=== PATIENT | female | born 1955 | race Caucasian/White ===

== ENCOUNTER → 2017-06-07 | Outpatient (CLI) | payer OTHER | LOC: BMCIMAGING 15:40 | PROVIDERS: ATTEND Podiatrist Foot & Ankle Surgery | DX: M19.071 Primary osteoarthritis, right ankle and foot (principal) ==

== ENCOUNTER 2017-12-26 15:38 | Inpatient (IN) | payer OTHER ==
[2017-12-26 16:33] LABS: PLATELET COUNT 397 10^3/uL (150-400)
[2017-12-26 16:41] LABS: INR 1.08 (0.83-1.16); PROTIME(PATIENT) 14.2 SEC (12.0-15.0)
[2017-12-26] MEDS ORDERED: ACETAMINOPHEN 325 MG TAB PO PRN (17:15)
[2017-12-26] MEDS ORDERED: oxyCODONE IR 5 MG TAB PO PRN (17:15)
[2017-12-26] MEDS ORDERED: ONDANSETRON DISINTEGRATING 4 MG TAB PO PRN (17:15)
[2017-12-26] MEDS ORDERED: ONDANSETRON 4 MG/2 ML VIAL IVP PRN (17:15)
--- NOTE | 2017-12-26 18:22 | PDGENHP ---
History and Physical - Chief Complaint anemia, weakness - History of Present Illness This is a 62 yo female who is post menopausal who previously had a long hx of heavy periods who has had intermittent vaginal bleeding since the middle of November. She is followed by her [employer], Dr. Gal Sun. She has been diagnosed with uterine fibroids. She recently had an endometrial biopsy and this was non diagnostic. A Hysterectomy was recommended. She wanted a seconded opinion and therefore presented to Dr. Crawford today for discussion regarding uterine artery embolization. During her consultation, she was found to have fatigue and be pale and labs were obtained which shows a Hgb of 6.2. We have been asked to provide direct admission for symptomatic anemia and further w/u and management. She reports weight loss over the past 2 months. She has no other constitutional symptoms. She denies cp, palpitations, leg swelling, fever, n/v/d. She has no hx of CV disease. She does not take an aspirin or platelet inhibitor. She is not on AC PMHx: uterine fibroids PSHx: x 2 Soc: daily ETOH at dinner, no Tobacco. Lives with FmHx: no hx of uterine cancer History Information - Allergies/Home Medication List Allergies/Adverse Reactions: No Known Allergies Allergy (Unverified 07/04/16 10:02) Home Medications: Aspirin [Aspirin 81mg (*)] 81 mg PO DAILY 07/04/16 [Last Taken Unknown] Herbals/Supplements -Info Only 1 ea PO DAILY 07/04/16 [Last Taken Unknown] Multivitamins [Multivitamin (*)] 1 each PO DAILY 07/04/16 [Last Taken Unknown] Naproxen Sodium [Aleve 220 MG (*)] 220 mg PO DAILY PRN 07/04/16 [Last Taken Unknown] I have personally reviewed and updated: medical history, social history - Social History Smoking Status: Never smoked Review of Systems Review of Systems: ROS: 10pt was reviewed & negative except for what was stated in HPI & below Physical Exam Physical Exam: Temp Pulse Resp BP Pulse Ox 37.1 C 112 H 18 153/88 H 86 L 12/26/17 18:03 12/26/17 18:03 12/26/17 18:03 12/26/17 18:03 12/26/17 18:03 Constitutional: no apparent distress Eyes: PERRL, pale conjunctiva Ears, Nose, Mouth, Throat: moist mucous membranes, hearing normal Cardiovascular: tachycardia, No irregularly irregular, No JVD, No edema Respiratory: no respiratory distress, no rales or rhonchi, clear to auscultation Gastrointestinal: normoactive bowel sounds, soft, non-tender abdomen Genitourinary: no bladder fullness Skin: warm Musculoskeletal: full muscle strength Neurologic: AAOx3 Psychiatric: interacting appropriately, not anxious, not encephalopathic Lymph, Heme, Immunologic: No petechiae Lab Data & Imaging Review 12/26/17 16:25 12/26/17 16:25 WBC 7.73 10^3/uL (3.80-9.50) 12/26/17 16:25 RBC 2.04 10^6/uL (4.18-5.33) L 12/26/17 16:25 Hgb 6.2 g/dL (12.6-16.3) L 12/26/17 16:25 Hct 20.4 % (38.0-47.0) L 12/26/17 16:25 MCV 100.0 fL (81.5-99.8) H 12/26/17 16:25 MCH 30.4 pg (27.9-34.1) 12/26/17 16:25 MCHC 30.4 g/dL (32.4-36.7) L 12/26/17 16:25 RDW 12.7 % (11.5-15.2) 12/26/17 16:25 Plt Count 397 10^3/uL (150-400) 12/26/17 16:25 MPV 9.3 fL (8.7-11.7) 12/26/17 16:25 Neut % (Auto) 78.3 % (39.3-74.2) H 12/26/17 16:25 Lymph % (Auto) 11.0 % (15.0-45.0) L 12/26/17 16:25 [place] % (Auto) 9.1 % (4.5-13.0) 12/26/17 16:25 Eos % (Auto) 0.5 % (0.6-7.6) L 12/26/17 16:25 Baso % (Auto) 0.8 % (0.3-1.7) 12/26/17 16:25 Nucleat RBC Rel Count 0.0 % (0.0-0.2) 12/26/17 16:25 Absolute Neuts (auto) 6.06 10^3/uL (1.70-6.50) 12/26/17 16:25 Absolute Lymphs (auto) 0.85 10^3/uL (1.00-3.00) L 12/26/17 16:25 Absolute Monos (auto) 0.70 10^3/uL (0.30-0.80) 12/26/17 16:25 Absolute Eos (auto) 0.04 10^3/uL (0.03-0.40) 12/26/17 16:25 Absolute Basos (auto) 0.06 10^3/uL (0.02-0.10) 12/26/17 16:25 Absolute Nucleated RBC 0.00 10^3/uL (0-0.01) 12/26/17 16:25 Immature Gran % 0.3 % (0.0-1.1) 12/26/17 16:25 Immature Gran # 0.02 10^3/uL (0.00-0.10) 12/26/17 16:25 Platelet Estimate ADEQUATE (ADEQ) 12/26/17 16:25 PT 14.2 SEC (12.0-15.0) 12/26/17 16:25 INR 1.08 (0.83-1.16) 12/26/17 16:25 APTT 21.5 SEC (23.0-38.0) L 12/26/17 16:25 Sodium 136 mEq/L (135-145) 12/26/17 16:25 Potassium 3.9 mEq/L (3.3-5.0) 12/26/17 16:25 Chloride 103 mEq/L (97-110) 12/26/17 16:25 Carbon Dioxide 21 mEq/l (22-31) L 12/26/17 16:25 Anion Gap 12 mEq/L (8-16) 12/26/17 16:25 BUN 9 mg/dL (7-23) 12/26/17 16:25 Creatinine 0.5 mg/dL (0.6-1.0) L 12/26/17 16:25 Estimated GFR > 60 12/26/17 16:25 Glucose 120 mg/dL (70-100) H 12/26/17 16:25 Calcium 9.2 mg/dL (8.5-10.4) 12/26/17 16:25 Assessment & Plan Assessment: #Symptomatic anemia #Dysfunctional uterine bleeding leading to anemia in a patient with uterine fibroids #Weight loss #Fatigue and Weakness #Tachycardia, no hypotension #Macrocytosis Plan: admit transfuse 2 units MRI abd/pelvis r/o malignancy SCD home meds as appropriate
[2017-12-27 04:38] LABS: PLATELET COUNT 292 10^3/uL (150-400)
[2017-12-27] MEDS ORDERED: GADOBUTROL 10 ML VIAL IVP ONE (09:27)
--- NOTE | 2017-12-27 09:58 | PDMN ---
Medical Necessity Medical necessity: Patient meets inpatient criteria per physician note and [facility] Obstetric and Gynecologic Disease GRG (direct admission from interventional radiology office w/fatigue and pallor/history of weight loss, DUB and near- syncopal episode w/recommended hysterectomy; getting 2nd opinion for possible uterine artery embolization; sat 86% on RA, tachycardiac at 112, H and H 6.2 and 20.4; will transfuse 2 units PRBC; anticipated LOS > 2 midnights for transfusions, MRI to r/o malignancy, serial bloodwork.)
--- NOTE | 2017-12-27 11:47 | HOSPPROG ---
Hospitalist Progress Note Assessment/Plan: healthy 62 yo F w ABLA< dysfunctional uterine bleeding DFUB: agree she needs definitive biopzy prior to management decisions generalized weakness: attributable to severe anemia ABLA: give 2 add'l units no bleeding in 3 days proph: scd's dispo: inpatient Subjective: case d/w dr coyle. symptomatically improved Objective: Vital Signs Temp Pulse Resp BP Pulse Ox 37.1 C 84 16 121/77 H 95 12/27/17 07:34 12/27/17 07:34 12/27/17 07:34 12/27/17 07:34 12/27/17 07:34 Laboratory Results 12/27/17 04:13 12/27/17 04:13 12/26/17 12/27/17 12/28/17 05:59 05:59 05:59 Intake Total 150 Balance 150 PT 14.2 SEC (12.0-15.0) 12/26/17 16:25 INR 1.08 (0.83-1.16) 12/26/17 16:25 - Physical Exam Constitutional: no apparent distress, appears nourished Eyes: PERRL, anicteric sclera Ears, Nose, Mouth, Throat: moist mucous membranes, hearing normal Cardiovascular: regular rate and rhythym, no murmur, rub, or gallop, No systolic murmur Respiratory: no respiratory distress, no rales or rhonchi Gastrointestinal: normoactive bowel sounds, soft, non-tender abdomen Genitourinary: no bladder fullness, No new in urethra Skin: warm Musculoskeletal: full muscle strength Neurologic: AAOx3
--- NOTE | 2017-12-27 15:34 | ASMTCMCOM ---
CM Note CM Note Notes: Spoke with Pt's RN, Pt to get MRI today and may undergo a type of procedure to stop bleeding-plan still to be determined. Pt does have , no therapy indicated at this time. Attempted to meet with Pt, sleeping soundly. Anticipate this Pt will probablly be able to d/c home independently but, CM will check in with Pt once treatment plan is confirmed. D/C Plan: TBD Date Signed: 12/27/2017 03:33 PM Electronically Signed By:Michelle Ralph
--- NOTE | 2017-12-27 18:35 | SOAPPROG ---
[facility] Progress Note Assessment/Plan: Assessment: DUB: MRI reviewed. Pending benign biopsy result, anatomically, patient is a candidate for UFE if uterine preserving txment option for DUB is still desired. Plan: Discussed above with patient. Greatly appreciate hospitalist service helping with this patient's anemia. Once patient recovers from current hospitalization, outpatient UAE can be scheduled if still appropriate at that time. I'll follow up with patient after discharge. 12/27/17 18:32 Subjective: Hospital course reviewed. Objective: Vital Signs Temp Pulse Resp BP Pulse Ox 37.2 C 89 14 116/74 96 12/27/17 15:03 12/27/17 15:03 12/27/17 15:03 12/27/17 15:03 12/27/17 15:03 Laboratory Results 12/27/17 04:13 12/27/17 04:13 12/26/17 12/27/17 12/28/17 05:59 05:59 05:59 Intake Total 150 Balance 150 PT 14.2 SEC (12.0-15.0) 12/26/17 16:25 INR 1.08 (0.83-1.16) 12/26/17 16:25 MRI: scattered enhancement of fibroids, indicating some necrosis. no surrounding invasion or other indirect signs of malignancy, but this does not 100% rule out CA. no adnomyosis. ICD10 Worksheet Patient Problems: Problems Problem Status Onset Uterine bleeding Acute
[2017-12-28] MEDS ORDERED: Herbals/Supplements -Info Only PO SCH (09:00)
[2017-12-28] MEDS ORDERED: MULTIVITAMINS 1 EACH TAB PO SCH (09:00)
[2017-12-28 10:35] VITALS: BP 120/72
--- NOTE | 2017-12-28 11:10 | HOSPPROG ---
Hospitalist Progress Note Assessment/Plan: healthy 62 yo F w ABLA< dysfunctional uterine bleeding DFUB: agree she needs definitive biopzy prior to management decisions generalized weakness: attributable to severe anemia ABLA: give 2 add'l units no bleeding in 3 days proph: scd's dispo: home today > 30 minutes on dc Subjective: responded well to transfusion Objective: Vital Signs Temp Pulse Resp BP Pulse Ox 37.0 C 88 16 120/72 96 12/28/17 10:34 12/28/17 10:34 12/28/17 10:34 12/28/17 10:34 12/28/17 10:34 Laboratory Results 12/28/17 10:18 12/27/17 04:13 12/27/17 12/28/17 12/29/17 05:59 05:59 05:59 Intake Total 150 Balance 150 PT 14.2 SEC (12.0-15.0) 12/26/17 16:25 INR 1.08 (0.83-1.16) 12/26/17 16:25 - Physical Exam Constitutional: no apparent distress, appears nourished Eyes: PERRL, anicteric sclera Ears, Nose, Mouth, Throat: moist mucous membranes, hearing normal Cardiovascular: regular rate and rhythym, no murmur, rub, or gallop Respiratory: no respiratory distress, no rales or rhonchi Gastrointestinal: normoactive bowel sounds, soft, non-tender abdomen Genitourinary: no bladder fullness, No new in urethra Skin: warm, normal color Musculoskeletal: full muscle strength Neurologic: AAOx3 ICD10 Worksheet Patient Problems: Problems Problem Status Onset Uterine bleeding Acute
--- NOTE | 2017-12-28 11:18 | ASMTCMCOM ---
CM Note CM Note Notes: Dc order received. Anticipate dc home with support of spouse. CM available if needs/changes. Date Signed: 12/28/2017 11:18 AM Electronically Signed By:Kalli Matute RN
--- NOTE | 2017-12-28 11:21 | ASMTLACE ---
LACE Length of stay for Answers: 3 days current admission Acuity / Level of Answers: Yes Care: Did the patient have an inpatient admission? Comorbidities - select Answers: Other Notes: uterine fibroids all that apply # of Emergency department Answers: 0 visits in the last 6 months Score: 7 Date Signed: 12/28/2017 11:20 AM Electronically Signed By:Kalli Matute RN
--- NOTE | 2017-12-28 11:37 | GDS ---
[f rep st] DISCHARGE SUMMARY DISCHARGE DIAGNOSES: 1. Dysfunctional uterine bleeding. 2. Acute on chronic blood-loss anemia. PROCEDURES: Transfusion of 4 units of packed red cells. Please see admission history and physical by Dr. Fabio Castro. The patient presented to Dr. Crawford for possible uterine artery embolization. She was pale and weak, referred for transfusion. Her pres enting hemoglobin was 6.2. She received a total of 4 units with improvement. She has had ongoing ut erine bleeding. Iron studies were, unfortunately, not sent at the time of admission. She had a pelv ic MRI revealing likely fibroids, but she has had an indeterminate biopsy in the past, and Dr. Crawford wi shes to perform a diagnostic biopsy prior to discharge. /[id number]/MODL
== END 2017-12-28 12:53 | disposition home or self-care (01) | DRG 812 ==
LOC: FIMAGING 15:38 → F3E 17:15
PROVIDERS: ADMIT Family Medicine; ATTEND Internal Medicine
PROC: 30233N1 Transfusion of Nonautologous Red Blood Cells into Peripheral Vein, Percutaneous Approach (ICD-10-PCS; principal; 2017-12-26)
DX: D50.0 Iron deficiency anemia secondary to blood loss (chronic) (principal); N93.8 Other specified abnormal uterine and vaginal bleeding; D25.9 Leiomyoma of uterus, unspecified; R63.4 Abnormal weight loss; R53.83 Other fatigue; R00.0 Tachycardia, unspecified; D75.89 Other specified diseases of blood and blood-forming organs; Z78.0 Asymptomatic menopausal state
CPT/HCPCS: 82607-90; A9585; P9016

== ENCOUNTER 2018-01-20 10:57 | Observation (INO) | payer OTHER ==
[2018-01-20] MEDS ORDERED: GLUCAGON HCL 1 MG VIAL IVP PRN (11:40)
[2018-01-20] MEDS ORDERED: ALTEPLASE 2 MG VIAL IVP PRN (11:40)
[2018-01-20] MEDS ORDERED: HEPARIN 10,000 UNIT/10 ML MDV (1,000 UNIT/ML) IVP PRN (11:40)
[2018-01-20] MEDS ORDERED: fentaNYL 100 MCG/2 ML INJ IVP PRN (11:40)
[2018-01-20] MEDS ORDERED: MIDAZOLAM 2 MG/2 ML VIAL IVP PRN (11:40)
[2018-01-20] MEDS ORDERED: SCOPOLAMINE HYDROBROMIDE 1 MG/3 DAYS PATCH TD ONE (11:40)
[2018-01-20] MEDS ORDERED: NALOXONE HCL 0.4 MG/ML INJ IVP PRN ×2 (11:40→13:49)
[2018-01-20] MEDS ORDERED: NS 1,000 ML IV ONE (11:40)
[2018-01-20] MEDS ORDERED: KETOROLAC 30 MG/1 ML SDV IVP ONE ×2 (11:40→12:45)
[2018-01-20] MEDS ORDERED: MEPERIDINE 25 MG/ML SYR IVP PRN (11:40)
[2018-01-20] MEDS ORDERED: PROTAMINE SULFATE 50 MG/5 ML VIAL IVP PRN (11:40)
[2018-01-20] MEDS ORDERED: DEXAMETHASONE 10 MG/ML VIAL IVP ONE (11:40)
[2018-01-20] MEDS ORDERED: FLUMAZENIL 0.5 MG/5 ML MDV IVP PRN (11:40)
[2018-01-20] MEDS ORDERED: MIDAZOLAM 2 MG/2 ML VIAL ONE ×2 (11:47→13:53)
[2018-01-20] MEDS ORDERED: NALOXONE HCL 0.4 MG/ML INJ ONE (11:47)
[2018-01-20] MEDS ORDERED: FLUMAZENIL 0.5 MG/5 ML MDV IVP ONE (11:47)
[2018-01-20] MEDS ORDERED: fentaNYL 100 MCG/2 ML INJ ONE ×2 (11:48→13:53)
[2018-01-20] MEDS ORDERED: DEXMEDETOMIDINE HCL 200 MCG in NS 50 ML IV ONE (12:00)
[2018-01-20] MEDS ORDERED: KETOROLAC 15 MG/1 ML SDV ONE ×2 (12:19→12:22)
--- NOTE | 2018-01-20 13:04 | PDGENHP ---
History & Physical Chief Complaint: UTERINE FIBROIDS History of Present Illness: H/O SEVERE ANEMIA DUE TO DUB, HOWEVER, THAT'S STOPPED X 10 DAYS. HEAVEY BLEEDING UP TO THAT POINT. Pertinent Past, Social, Family History: NONE. NONSMOKER. NOT ON HORMONE REPLACEMENT. NO RX DRUGS. Relevant Physical Exam: NO BLEEDING. NO PAIN NOW. Cardiorespiratory Assessment: RRR, CTA
--- NOTE | 2018-01-20 13:05 | PDPROPOC ---
Sedation Plan of Care Sedation Plan of Care: vital signs stable, mental status noted, patient educated of risks, benefits, alternatives, patient can tolerate sedation ASA Classification: ASA 2 Planned drugs: fentanyl, midazolam Mallampati Score: Class 1 Mallampati Reference Image: Patient passed 3-3-2 rule?: Yes
[2018-01-20] MEDS ORDERED: ACETAMINOPHEN 325 MG TAB PO PRN (13:49)
[2018-01-20] MEDS ORDERED: ONDANSETRON DISINTEGRATING 4 MG TAB PO PRN (13:49)
[2018-01-20] MEDS ORDERED: ONDANSETRON 4 MG/2 ML VIAL IVP PRN ×2 (13:49→16:06)
[2018-01-20] MEDS ORDERED: HYDROmorphONE/DILAUDID 6 MG/30 ML PCA IV PRN (13:49)
[2018-01-20] MEDS ORDERED: IOPAMIDOL (ISOVUE-300) 100 ML BTL ONE (15:37)
[2018-01-20] MEDS ORDERED: NITROGLYCERIN/D5W 50 MG/250 ML BOTTLE IV ONE (15:38)
[2018-01-20] MEDS ORDERED: LIDOCAINE 1% 300 MG/30 ML SDV ONE (15:39)
[2018-01-20] MEDS ORDERED: BUPIVACAINE 0.5% 30 ML SDV ONE (15:39)
[2018-01-20] MEDS ORDERED: BISACODYL 10 MG SUPP PR PRN (16:06)
[2018-01-20] MEDS ORDERED: POLYETHYLENE GLYCOL 3350 17 GM PKT PO PRN (16:06)
[2018-01-20] MEDS ORDERED: LACTULOSE 20 GM/30 ML UDCUP PO PRN (16:06)
[2018-01-20] MEDS ORDERED: oxyCODONE IR 5 MG TAB PO PRN (16:06)
[2018-01-20] MEDS ORDERED: MAGNESIUM HYDROXIDE 30 ML UDCUP PO PRN (16:06)
--- NOTE | 2018-01-20 16:06 | PDRADPN ---
Radiology Procedure Note Date of Procedure: 01/20/18 Radiologist: Sheree Crawford Anesthesia: IV Sedation Pre-op Diagnosis: fibroids Post-op Diagnosis: SAME Indication: severe DUB and anemia Procedure: UAE Inf/Abcess present in the surg proc area at time of surgery?: No Complications: NONE
[2018-01-20] MEDS ORDERED: NS 1,000 ML IV SCH (16:15)
[2018-01-20] MEDS ORDERED: SENNOSIDES/DOCUSATE SODIUM TAB PO SCH (21:00)
[2018-01-21 00:12] VITALS: BP 97/55
[2018-01-21] MEDS ORDERED: levOFLOXACIN 500 MG/DEXTROSE 100 ML IV ONE (09:00)
[2018-01-21] MEDS ORDERED: IBUPROFEN 600 MG TAB PO SCH (12:00)
--- NOTE | 2018-01-22 14:58 | SOAPPROG ---
[facility] Patient Name: MYRNA SORIANO Rpt#: [id number] Unit Number: [id number] Attending/ER Physician: Sheree Crawford MD Patient Type: ADM Stacey Adm Date/Source: 01/20/18 PHY Discharge Date: Primary Carrier: [employer] SOAP NOTE SOAP Progress Note Assessment/Plan: Assessment: Explained that buldge is likely swollen fibroid/uterus. No pain experienced: likely indicative of the fact that uterus still has ovarian artery and RT uterine arteries for supply, as seen by angiogram Emphasized that at patient's age, primary goal at this point is to stop the bleeding, which yesterday's procedure might very well have done. If patient bleeds again, will need to re-angio and embolize. Patient expressed full understanding of all information discussed. Plan: D/C N[facility] BC IV can D/C home once able to urinate naturally and tolerating PO. 01/21/18 09:35 Subjective: Feels great. No Pain. Had lots of questions, all were addressed today. Objective: Vital Signs Temp Pulse Resp BP Pulse Ox 36.7 C 88 16 97/55 L 95 01/21/18 00:11 01/21/18 00:11 01/21/18 00:11 01/21/18 00:11 01/21/18 00:11 01/20/18 01/21/18 01/22/18 05:59 05:59 05:59 Intake Total 919.8 Output Total 500 Balance 419.8 Slight abd buldge; rt groin bandage without hematoma. ICD10 Worksheet Patient Problems: Problems Problem Status Onset Uterine bleeding Acute *This report may have been compiled using a voice recognition system, and might contain typographical errors and blanks.* Sheree Crawford MD 01/21/1837 <Electronically signed by Sheree Crawford MD> 0 T: CARLOS 01/21/18 0931 CC:
== END 2018-01-21 13:00 | disposition home or self-care (01) ==
LOC: FIMAGING 10:57 → F3E 13:49 → FOB 17:29
PROVIDERS: ADMIT Radiology Diagnostic Radiology; ATTEND Radiology Diagnostic Radiology
PROC: 04LF3ZU Occlusion of Left Uterine Artery, Percutaneous Approach (ICD-10-PCS; principal; 2018-01-20)
PROC: 04HF33Z Insertion of Infusion Device into Left Internal Iliac Artery, Percutaneous Approach (ICD-10-PCS; principal; 2018-01-20)
PROC: B41C1ZZ Fluoroscopy of Pelvic Arteries using Low Osmolar Contrast (ICD-10-PCS; principal; 2018-01-20)
DX: N93.8 Other specified abnormal uterine and vaginal bleeding (principal); D25.9 Leiomyoma of uterus, unspecified
CPT/HCPCS: 37243; 75736; 99152; 99153; C1769; C1894; G0378; J1100; J1644; J1885; J1956; J2250; J2310; J3010; Q9967

== ENCOUNTER 2018-11-09 18:37 | Emergency (ER) | payer OTHER ==
--- NOTE | 2018-11-09 19:07 | EDPHY ---
HPI/HX/ROS/PE/MDM Narrative: CHIEF COMPLAINT: Hit head on rock HISTORY OF PRESENT ILLNESS: The patient is a 63 y/o female complaining of headache after falling and hitting her head on a rock. She was gardening in her yard when she slipped and fell, striking her head on a rock. She denies loss of consciousness, nausea, vomiting, buzzing in her ears, pain in her neck, tingling or numbness in her extremities, weakness, or any other associated symptoms. She denies anticoagulation or history of seizures. She was encouraged to come to the emergency department by her . No fever, chills, chest pain, shortness of breath, palpitations, vomiting, diarrhea, urinary complaints, lightheadedness. REVIEW OF SYSTEMS: A comprehensive 10 system review of systems is otherwise negative aside from elements mentioned in the history of present illness and medical decision making PAST MEDICAL HISTORY: Uterine fibroids SOCIAL HISTORY: at bedside, lives in [place], employed by [employer] VITAL SIGNS: Reviewed by me. GENERAL: Well-developed, well-nourished, resting comfortably in no respiratory distress. HEENT: 6cm abrasion to the right frontal region with a 10cm by 6 cm hematoma palpable underneath Eyes: 5mm pupils. Pupils are equal, round, and reactive to light accommodation. No icterus, no injection. Mouth: moist mucous membranes. No erythema or lesions. Neck: supple with no adenopathy. No tenderness to palpation. LUNGS: Clear to auscultation bilaterally, no wheezes, rhonchi or rales. CARDIAC: Regular rate and rhythm, no rubs, murmurs or gallops. ABDOMEN: Soft, nontender, nondistended, bowel sounds normal. BACK: No CVA tenderness. EXTREMITIES: No trauma. No edema. Range of motion is normal throughout. NEURO: Alert and oriented, cranial nerves 2-12 are intact. Motor strength 5/5 throughout. Sensation intact to light touch throughout. Normal gait. SKIN: Warm and dry, no rash. PSYCHIATRIC: Normal mentation, no agitation. Mentating well. ED Course: Study: CT of the head Indication: Head injury Results: CT scan of the head was obtained. The results of the study are: negative for acute findings The study was read by the radiologist, Dr. Garcia. I viewed the images myself on the PACS system. The patient presents with headache after hitting her head on a rock. She has a large laceration and hematoma to the right frontal region. No loss of consciousness. She denies any other associated symptoms. Will proceed with CT scan of the head based on patient's age utilizing the [place] head CT criteria. Patient's is also concerned regarding the significant size of the hematoma on the forehead. 19:40 - CT is negative for acute findings. I feel she is safe to return home with concussion instructions. The patient agrees with this course of action. Please see the discharge instructions. MDM: Differential diagnosis for the patient's head injury was considered including but not limited to concussion, skull fracture, intraparenchymal contusion, subarachnoid, subdural and epidural hematoma. - Data Points Imaging Results: CT Head: Impression: Right frontal scalp hematoma with no associated fracture or intracranial hemorrhage. Results called and discussed with Iza Fox MD on 11/09/2018 at 19:35. Dictated By: Jordan Garcia MD Imaging: Discussed imaging studies w/ call specialist Radiologist Medications Given: Discontinued Medications Acetaminophen (Tylenol) 1,000 mg PO EDNOW ONE Stop: 11/09/18 19:12 Last Admin: 11/09/18 19:35 Dose: 1,000 mg General Time Seen by Provider: 11/09/18 18:50 Initial Vital Signs: Initial Vital Signs Temperature (C) 36.8 C 11/09/18 18:42 Heart Rate 96 11/09/18 18:42 Respiratory Rate 18 11/09/18 18:42 Blood Pressure 167/97 H 11/09/18 18:42 O2 Sat (%) 94 11/09/18 18:42 O2 Delivery Mode Room Air Allergies/Adverse Reactions: No Known Allergies Allergy (Verified 11/09/18 18:42) Home Medications: Medication Instructions Recorded Herbals/Supplements -Info Only 1 ea PO DAILY 07/04/16 Multivitamins [Multivitamin (*)] 1 each PO DAILY 07/04/16 Departure - Departure Disposition: Home, Routine, Self-Care Clinical Impression: Head injury Qualifiers: Encounter type: initial encounter Qualified Code(s): S09.90XA - Unspecified injury of head, initial encounter Forehead contusion Qualifiers: Encounter type: initial encounter Qualified Code(s): S00.83XA - Contusion of other part of head, initial encounter Condition: Good Instructions: Head Injury (ED), Contusion in Adults (ED) Additional Instructions: Please use Tylenol or ibuprofen as needed for headache pain. Apply ice for 20-30 minutes every 2-3 hours over the next 24-48 hours to help with the swelling on her forehead. Return to the emergency department or seek care urgently if you have symptoms of worsening head injury such as persistent vomiting, severe headache, seizure, altered mental status, or other concerns. Referrals: NONE *PRIMARY CARE P,. [Primary Care Provider] - As per Instructions Report Scribed for: Iza Fox Report Scribed by: Donna Arnett Date of Report: 11/09/18 Time of Report: 19:10 Physician Review and Approval Statement: Portions of this note were transcribed by a biomedical engineering aide. I personally performed a history, physical exam, medical decision making, and confirmed accuracy of information the transcribed note.
[2018-11-09] MEDS ORDERED: ACETAMINOPHEN 500 MG TAB PO ONE (19:11)
[2018-11-09 19:59] VITALS: BP 112/78
== END 2018-11-09 19:59 | disposition home or self-care (01) ==
DX: S00.03XA Contusion of scalp, initial encounter (principal); W01.198A Fall on same level from slipping, tripping and stumbling with subsequent striking against other object, initial encounter; Y92.017 Garden or yard in single-family (private) house as the place of occurrence of the external cause; Y93.H2 Activity, gardening and landscaping